=== PATIENT | male | born 2005 | race Caucasian/White ===

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

== ENCOUNTER 2024-10-07 01:54 | Emergency (ER) | payer OTHER, SELFPAY ==
[2024-10-07 01:57] VITALS: BP 146/85; PULSE 72; RESP 20; TEMP 36.6; O2SAT 99; BMI 24.3
[2024-10-07 02:08] VITALS: BP 146/85; PULSE 53
[2024-10-07] MEDS: EPINEPHrine 1 MG/ML VIAL 0.3 MG IM (02:08)
[2024-10-07] MEDS: Famotidine/PF 20 MG/2 ML VIAL IVPUSH (02:08)
[2024-10-07] MEDS: diphenhydrAMINE HCL 50 MG/ML VIAL IVPUSH (02:09)
--- NOTE | 2024-10-07 02:20 | PC.NURSE ---
verified solumedrol with Donya CALIXTO, unable to scan barcode.
--- NOTE | 2024-10-07 02:43 | ED_ITS ---
HPI - Allergic Reaction General Chief complaint: Allergic Reaction Stated complaint: allergic reaction Time Seen by Provider: 10/07/24 01:56 Source: patient, family (mother), RN notes reviewed and old records reviewed Mode of arrival: ambulatory Limitations: no limitations History of Present Illness ED Provider: Juan Carlos MARIE narrative: 19-year-old male presents for evaluation of facial swelling. Patient reports about 30 minutes prior to arrival he was getting ready for bed when he noticed swelling to his face mostly around his right eye. He does not take any medication. He reports he uses creatine supplements but has been on them for a long time and has not changed brands recently. Denies any new soaps, lotions, detergents. He does not believe he was bit by anything This has happened in the past but not as severe He reports some difficulty swallowing but denies shortness of breath He also has an itchy rash to his arms Related Data Previous Rx's ?Medication ?Instructions ?Recorded diphenhydramine HCl 25 mg capsule 25 mg PO Q4-6H PRN a llergic 10/07/24 (Allergy Medication) reaction #20 caps epinephrine 0.3 mg/0.3 mL 0.3 mg (0.3 mL) IM Q15M PRN 10/07/24 injection, auto-injector (EpiPen anaphylaxis #2 ea 2-Antolin) prednisone 20 mg tablet 40 mg (2 x 20 mg) PO DAILY # 6 tabs 10/07/24 Allergies Allergy/AdvReac Type Severity Reaction Status Date / Time No Known Allergies Allergy Verified 10/07/24 01:59 Review of Systems Constitutional: Constitutional: Denies body ache(s), Denies chills and Denies fever(s) Eyes: Eyes: Denies blurry vision ENT: Denies throat swelling and Denies tongue swelling Comments: Patient reports some difficulty swallowing Cardiovascular: Cardiovascular: Denies chest pain, Denies dyspnea and Denies dyspnea on exertion Respiratory: Respiratory: Denies dyspnea and Denies dyspnea on exertion Gastrointestinal: Gastrointestinal: Denies abdominal pain Integumentary/Breasts: Skin/Breast: Reports swelling and Denies erythema Psychiatric: Psychiatric: Denies anxiety Allergic/Immunologic: Allergic/Immunologic: Reports urticaria, Denies throat swelling and Denies tongue swelling PMFSH Social History Social History Smoked in Last 30 Days: No Use of substances other than those prescribed or required for medical reasons: No Physical Exam ED Vital Signs: Vital Signs - 24 hr 10/07/24 01:57 10/07/24 02:08 Temperature 98 F Pulse Rate 72 53 Respiratory Rate 20 Blood Pressure 146/85 H 146/85 H Pulse Oximetry 99 Oxygen Delivery Method Room Air BMI result Body Mass Index 24.3 Const General: healthy appearing, comfortable, no acute distress, alert and awake Nutritional Appearance: well nourished Orientation/consciousness: patient oriented x3 HENMT Other: Patient has marked facial edema most significant around the right periorbital region with some involvement of left periorbital region. There was questionable involvement of the lower lip. No intraoral, retropharyngeal edema. Uvula is midline, airway is widely patent Throat: Yes posterior oropharynx normal Eyes Eyelids: Yes eyelids normal Conjunctivae: conjunctivae normal Sclerae: sclerae normal Corneas: corneas normal Pupils: Equal, round and reactive pupils present EOM: EOMs intact bilaterally Neck Neck: Yes full ROM Resp Effort & Inspection: normal respiratory effort, able to speak in complete sentences, no audible wheezes and not labored Auscultation: clear to auscultation bilaterally Cardio Rate: regular rate Rhythm: regular rhythm Skin General skin exam: elasticity normal Neuro General: patient oriented x3 Cranial nerves: Yes Equal, round and reactive pupils present and Yes Bilaterally intact EOM present Cognition (Neuro): normal cognition Extrem Other: Moving all extremities well without any obvious deformities Course Reevaluation(s) Reevaluation #1: Patient re-evaluated, his facial swelling has significantly improved, he still has moderate edema to the right periorbital region but is able to open his eyes. He denies any difficulty swallowing Time: 02:45 Reevaluation #2: Patient again re-evaluated, his symptoms are continuing to improve but he still has some right upper eyelid swelling. He reports feeling much better, no longer has a difficulty swallowing. We will discharge the patient with an pen, he was educated on how to use it as well as his mother. We will discharge him with prednisone and Benadryl as well. He was recommended to follow up with an special education director as an outpatient Time: 03:57 Medications Administered Discontinued Medications Generic Name Dose Route Start Last Admin Trade Name Freq PRN Reason Stop Dose Admin Diphenhydramine HCl 50 mg 10/07/24 02:02 10/07/24 02:09 Diphenhydramine Hcl 50 Mg/Ml Vial IVPUSH 10/07/24 02:03 50 mg ONCE ONE Administration Epinephrine 0.3 mg 10/07/24 02:02 10/07/24 02:08 Epinephrine 1 Mg/Ml Vial IM 10/07/24 02:03 0.3 mg STAT STA Administration Famotidine 20 mg 10/07/24 02:02 10/07/24 02:08 Famotidine/Pf 20 Mg/2 Ml Vial IVPUSH 10/07/24 02:03 20 mg ONCE ONE Administration Methylprednisolone Sodium Succinate 125 mg 10/07/24 02:02 10/07/24 02:20 Methylprednisolone Sod Succ 125 Mg Vial IVPUSH 10/07/24 02:03 125 mg ONCE ONE Administration Medical Decision Making Medical Decision Making [facility] Narrative: The patient has a pretty obvious allergic reaction with urticaria to his extremities with some facial edema. There is questionable mild involvement of the lower lip but otherwise that airway is widely patent, there was no stridor on exam, the patient is speaking clearly. He does reports some difficulty swallowing but no difficulty breathing. Given the rapid in marked facial edema I did order an EpiPen in addition to Solu-Medrol, Benadryl, Pepcid. Differential Diagnosis Differential Diagnoses: The differential diagnosis associated with the presentation includes Anaphylaxis Urticaria Allergic reaction Hypersensitivity reaction Discharge Plan Discharge Clinical Impression: Allergic reaction Patient Disposition: Home, Self-Care Instructions: General Allergic Reaction (ED) Additional Instructions: Take prednisone 20 mg daily for the next 3 days. Take Benadryl 25 mg every 4-6 hours as needed for itching, rash I prescribed an EpiPen that you may use intramuscularly for any similar reactions at involved facial swelling with difficulty breathing or swallowing. Do not use the EpiPen for a rash alone Follow-up with your primary doctor and an special education director Prescriptions: New prednisone 20 mg tablet 40 mg PO DAILY Qty: 6 0RF diphenhydramine HCl [Allergy Medication] 25 mg capsule 25 mg PO Q4-6H PRN (Reason: allergic reaction) Qty: 20 0RF epinephrine [EpiPen 2-Antolin] 0.3 mg/0.3 mL auto-injector 0.3 mg IM Q15M PRN (Reason: anaphylaxis) Qty: 2 0RF Rx Instructions: for 2 doses Print Language: Latvian
[2024-10-07 04:19] VITALS: BP 106/55; PULSE 60; RESP 11; TEMP 36.7; O2SAT 100
== END 2024-10-07 04:22 | disposition home or self-care (01) ==
PROVIDERS: Emergency Provider Emergency Medicine
DX: L50.0 Allergic urticaria (principal); R13.10 Dysphagia, unspecified
CPT/HCPCS: 96372; 96374; 96375; 99284; J0171; J1200; J1308; J2919